=== PATIENT | male | born 1965 | race African-American/Black ===

== ENCOUNTER 2018-06-06 17:15 | Emergency (ER) | payer MEDICAID ==
[2018-06-06 17:21] VITALS: BP 131/87
--- NOTE | 2018-06-06 17:44 | EDPHY ---
H & P Time Seen by Provider: 06/06/18 17:15 HPI/ROS: HPI I need my feet looked at. 52-year-old male by ambulance. Patient currently homeless. He is from [place]. He has been in [place] for about a week. He reports that he was seen briefly at a pharmacy. He showed the pharmacist his feet and was told to come to the emergency department to see a doctor. He states that he has not cut his toenails in some time. He currently does not have a primary care physician relationship up here. He has no other complaint. ROS: Constitutional: No fever, no chills. No weakness. Respiratory: No cough. No shortness of breath. Cardiac: No chest pain, no palpitations. Gastrointestinal: No abdominal pain, no vomiting, no diarrhea. Musculoskeletal: No back pain. No neck pain. No extremity pain. Skin: No rashes. Neurological: No headache. No focal weakness or altered sensation. Past medical history: Schizophrenia, anxiety, depression. He is currently not on any prescription medications. Social history: Homeless. As above. Denies smoking. Denies alcohol. Physical Exam: General Appearance: Alert, no distress. This patient is responding to questions appropriately and in full sentences. This patient appears well- hydrated and well-nourished. Eyes: Pupils equal and round no pallor or injection. No lid edema, erythema or injection. Lower extremity exam: Examination of both feet reveals dry cracked skin particularly around the area of the medial distal big toes. This appears to be an old cold immersion injury which has since healed and he has developed callus and flaking of skin. The other digits have some involvement of this but to a much lesser extent. There is no evidence of acute infection. Gangrene is unlikely. He has long nails which are are starting to curl into the distal aspect of his toes. Neurological: Motor sensory function is grossly intact. Cranial nerves are normal. Gait is normal. Skin: Warm and dry, no rashes. Musculoskeletal: Neck is supple and nontender. Extremities are symmetrical. All joints range without pain or impingement. Psychiatric: No agitation. No depression. Database: EKG: Imaging: Procedures: Emergency department course: Triage vital signs reviewed and are unremarkable. The patient is afebrile. Patient's presentation is consistent with old cold immersion injuries which have since healed involving both of his feet and primarily his big toes as described above. No evidence of acute infection. I discussed keeping his feet clean and dry. His toenails will be clipped. I will refer him to [facility] for re-evaluation at their walk-in clinic next week. He feels comfortable with this plan. Return to emergency department precautions reviewed with him. All of his questions were answered. He was discharged in good condition. Differential Diagnosis: The differential diagnosis on this patient includes but is not limited to dry, cracked skin the both feet, old cold immersion injuries. Gangrene, acute infectious process unlikely. This represents a partial list of diagnoses considered. These considerations are based on history, physical exam, past history, reassessment and diagnostic testing. Smoking Status: Never smoked Constitutional: Initial Vital Signs Temperature (C) 37.1 C 06/06/18 17:19 Heart Rate 85 06/06/18 17:19 Respiratory Rate 16 06/06/18 17:19 Blood Pressure 131/87 H 06/06/18 17:19 O2 Sat (%) 96 06/06/18 17:19 O2 Delivery Mode Room Air Allergies/Adverse Reactions: No Known Allergies Allergy (Unverified 06/06/18 17:19) Home Medications: Medication Instructions Recorded NK [No Known Home Meds] 06/06/18 Departure - Departure Disposition: Home, Routine, Self-Care Clinical Impression: Immersion foot Condition: Good Instructions: Foot Care for People with Diabetes (ED) Additional Instructions: Read and follow provided instructions. Follow-up with [facility], at their walk-in clinic on [address], on Friday or Friday through Friday of this week. I have given you a referral with their contact information. Keep her feet clean, warm and dry as discussed Return to the emergency department for worsening symptoms or other serious concerns. Referrals: [facility],. [Clinic] - As per Instructions
[2018-06-06] MEDS ORDERED: ACETAMINOPHEN 325 MG TAB ONE (17:51)
[2018-06-06] MEDS ORDERED: ACETAMINOPHEN 325 MG TAB PO ONE (17:52)
== END 2018-06-06 17:50 | disposition home or self-care (01) ==
DX: T69.022A Immersion foot, left foot, initial encounter (principal); T69.021A Immersion foot, right foot, initial encounter; Z59.0 Homelessness; F32.9 Major depressive disorder, single episode, unspecified; F41.9 Anxiety disorder, unspecified; F20.9 Schizophrenia, unspecified

== ENCOUNTER 2018-07-18 03:20 | Emergency (ER) | payer MEDICAID ==
--- NOTE | 2018-07-18 03:27 | EDPHY ---
H & P Time Seen by Provider: 07/18/18 03:25 HPI/ROS: HPI CHIEF COMPLAINT: Mechanical trip and fall, left-sided head strike. HISTORY OF PRESENT ILLNESS: This is a 52-year-old male, history of schizophrenia, presents emergency room by EMS after he states he slipped and fell on ice. He was walking along the sidewalk and slipped and fell he had head strike he struck the left side of his head. No LOC. Denies neck pain, denies chest pain, denies arm or extremity pain. Main complaint left-sided headache and has a scalp hematoma with small abrasion present. The hematoma is present left frontal temporal region. Patient called 911 from a local restaurant. He arrives to the emergency room GCS 15, alert or x4 no acute distress. Patient denies being on any blood thinners. Past Medical History: Schizophrenia Past Surgical History: Denies recent surgery Social History: alcohol this evening 2 beers. Denies illicit drugs. Denies tobacco. He is homeless. Family History: Noncontributory ROS REVIEW OF SYSTEMS: 10 Systems were reviewed and negative with the exception of the elements mentioned in the history of present illness. Exam Constitutional triage nursing summary reviewed, vital signs reviewed, awake/ alert. Eyes normal conjunctivae and sclera, EOMI, PERRLA. HENT head/neck atraumatic except a left frontal temporal hematoma with abrasion present. No midline neck pain no step-offs no crepitus. normal inspection, atraumatic, moist mucus membranes, no epistaxis, neck supple/ no meningismus, no raccoon eyes. Respiratory clear to auscultation bilaterally, normal breath sounds, no respiratory distress, no wheezing. Cardiovascular rate normal, regular rhythm, no murmur, no edema, distal pulses normal. Gastrointestinal soft, non-tender, no rebound, no guarding, normal bowel sounds, no distension, no pulsatile mass. Genitourinary no CVA tenderness. Musculoskeletal no midline vertebral tenderness, full range of motion, no calf swelling, no tenderness of extremities, no meningismus, good pulses, neurovascularly intact. Skin pink, warm, & dry, no rash, skin atraumatic. Neurologic awake, alert and oriented x 3, AAOx3, moves all 4 extremities equally, motor intact, sensory intact, CN II-XII intact, normal cerebellar, normal vision, normal speech. Psychiatric normal mood/affect. Heme/Lymph/Immune no lymphadenopathy. Differential Diagnosis: Includes but is not limited to in a particular order mechanical trip and fall with head strike, closed-head injury, intracranial bleed, skull fracture, subdural, epidural, traumatic subarachnoid, scalp hematoma, abrasion Medical Decision Making: Plan for this patient CT scan head without contrast rule out intracranial bleed. Or other acute traumatic injury. Patient reports to me his tetanus shot is up-to-date. Re-evaluation: CT scan head without contrast is negative for acute traumatic injury faxed to me by direct [facility] at time 3:55 a.m.. Patient ambulatory at 355am, without complaints, has a normal neurological exam. Feels well, denies complaints. Safe for d/c from the ER. Source: Patient, EMS - Medical/Surgical History Hx Asthma: No Hx Chronic Respiratory Disease: No Hx Diabetes: No Hx Cardiac Disease: No Hx Renal Disease: No Hx Cirrhosis: No Hx Alcoholism: No Hx HIV/AIDS: No Hx Splenectomy or Spleen Trauma: No Other PMH: schizophrenia, anxiety, depression. - Social History Smoking Status: Never smoked Constitutional: Initial Vital Signs Temperature (C) 36.6 C 07/18/18 03:26 Heart Rate 74 07/18/18 03:26 Respiratory Rate 18 07/18/18 03:26 Blood Pressure 121/79 H 07/18/18 03:26 O2 Sat (%) 96 07/18/18 03:26 O2 Delivery Mode Room Air Allergies/Adverse Reactions: No Known Allergies Allergy (Verified 07/18/18 03:24) Home Medications: Medication Instructions Recorded Seroquel 07/18/18 Sertraline HCl [Zoloft 100mg (*)] 07/18/18 Medical Decision Making - Data Points Medications Given: Discontinued Medications Acetaminophen (Tylenol) 1,000 mg PO EDNOW ONE Stop: 07/18/18 03:50 Last Admin: 07/18/18 03:51 Dose: 1,000 mg Departure - Departure Disposition: Home, Routine, Self-Care Clinical Impression: Scalp hematoma Qualifiers: Encounter type: initial encounter Qualified Code(s): S00.03XA - Contusion of scalp, initial encounter Condition: Good Instructions: Hematoma (ED) Additional Instructions: 1. Return to the emergency room if there is worsening symptoms questions or concerns Referrals: Patient,NotPresent [Unknown] - As per Instructions
[2018-07-18 03:29] VITALS: BP 121/79
[2018-07-18] MEDS ORDERED: ACETAMINOPHEN 500 MG TAB PO ONE (03:49)
== END 2018-07-18 04:11 | disposition home or self-care (01) ==
LOC: EDUNIT#
DX: S00.03XA Contusion of scalp, initial encounter (principal); W01.0XXA Fall on same level from slipping, tripping and stumbling without subsequent striking against object, initial encounter; Y92.9 Unspecified place or not applicable; Y93.9 Activity, unspecified; Y99.9 Unspecified external cause status

== ENCOUNTER 2018-08-19 00:49 | Emergency (ER) | payer MEDICAID, OTHER ==
--- NOTE | 2018-08-19 01:11 | EDPHY ---
H & P Stated Complaint: benadryl and Etoh Time Seen by Provider: 08/19/18 00:56 HPI/ROS: Chief Complaint: Alcohol and Benadryl abuse HPI: 53-year-old male was released from assisted earlier this evening. Patient states he when out drank 2 bottles of malt liquor and took 5 Benadryl. Patient states he takes Benadryl recreationally. Usually takes 10 at that time. Patient says that he is worried that he might fall down because he has in the past. He is ambulating without any difficulty per EMS. Denies any chest pain. No palpitations. No lightheadedness. Currently without complaint. ROS: 10 systems were reviewed and were negative except those elements noted in the HPI. PMH: Polysubstance abuse Social History: No smoking, daily alcohol, abuse is Benadryl, currently homeless Family History: non-contributory Physical Exam: Gen: Awake, Alert, No Distress HEENT: Nose: no rhinorrhea Eyes: PERRLA, EOMI Mouth: Moist mucosa Neck: Supple, no JVD Chest: nontender, lungs clear to auscultation Heart: S1, S2 normal, no murmur Abd: Soft, non-tender, no guarding Back: no CVA tenderness, no midline tenderness Ext: no edema, non-tender Skin: no rash Neuro: CN II-XII intact, Sensation grossly intact, Strength 5/5 in bilateral upper and lower extremities - Personal History Current Tetanus Diphtheria and Acellular Pertussis (TDAP): Yes - Medical/Surgical History Hx Asthma: No Hx Chronic Respiratory Disease: No Hx Diabetes: No Hx Cardiac Disease: No Hx Renal Disease: No Hx Cirrhosis: No Hx Alcoholism: No Hx HIV/AIDS: No Hx Splenectomy or Spleen Trauma: No Other PMH: schizophrenia, anxiety, depression. - Social History Smoking Status: Never smoked Constitutional: Initial Vital Signs Temperature (C) 36.6 C 08/19/18 00:51 Heart Rate 84 08/19/18 00:51 Respiratory Rate 16 08/19/18 00:51 Blood Pressure 117/79 08/19/18 00:51 O2 Sat (%) 95 08/19/18 00:51 O2 Delivery Mode Room Air O2 (L/minute) 16 Allergies/Adverse Reactions: No Known Allergies Allergy (Verified 07/18/18 03:24) Home Medications: Medication Instructions Recorded Seroquel 07/18/18 Sertraline HCl [Zoloft 100mg (*)] 07/18/18 Medical Decision Making ED Course/Re-evaluation: 53-year-old male was just released from assisted was present to the emergency department with concerns he might fall down. Patient is completely steady on his feet. Not clinically intoxicated. He is medically cleared for the [facility]. Departure - Departure Disposition: Home, Routine, Self-Care Clinical Impression: Polysubstance abuse Condition: Good Instructions: Polysubstance Abuse (ED) Additional Instructions: Follow up with [facility] for any concerns. Referrals: [facility],. [Clinic] - As per Instructions
[2018-08-19] MEDS ORDERED: ONDANSETRON DISINTEGRATING 4 MG TAB ONE (01:34)
[2018-08-19] MEDS ORDERED: ONDANSETRON DISINTEGRATING 4 MG TAB PO ONE (01:36)
[2018-08-19 03:18] VITALS: BP 123/59
== END 2018-08-19 03:55 | disposition home or self-care (01) ==
LOC: EDUNIT#
DX: F19.10 Other psychoactive substance abuse, uncomplicated (principal); F10.920 Alcohol use, unspecified with intoxication, uncomplicated; F32.9 Major depressive disorder, single episode, unspecified; F41.9 Anxiety disorder, unspecified